=== PATIENT | female | born 1985 | race Caucasian/White ===

== ENCOUNTER → 2016-12-26 | Outpatient (CLI) | payer BC, OTHER | LOC: MOB LAB 15:38 | PROVIDERS: ATTEND Obstetrics & Gynecology | DX: Z36 Encounter for antenatal screening of mother (principal); Z3A.36 36 weeks gestation of pregnancy | CPT/HCPCS: 87150 ==

== ENCOUNTER 2017-01-14 06:09 | Inpatient (IN) | payer BC, OTHER ==
[2017-01-14] MEDS ORDERED: Metoclopramide Inj 10 MG/2 ML VIAL IV ONE (06:13)
[2017-01-14] MEDS ORDERED: CefOXitin Inj 2 GM in Sodium Chloride 0.9% 100 ML IV ONE (06:13)
[2017-01-14] MEDS ORDERED: LIDOCAINE W/ SODIUM BICARB 0.5 ML SYR SUBD PRN (06:13)
[2017-01-14] MEDS ORDERED: Lactated Ringers 1,000 ML PRIMARY IV ONE (06:13)
[2017-01-14] MEDS ORDERED: CITRIC ACID/SODIUM CITRATE 30 ML CUP PO ONE (06:13)
[2017-01-14] MEDS ORDERED: NORMAL SALINE 10 ML SYRINGE FLUSH IVP PRN (06:13)
[2017-01-14] MEDS ORDERED: Famotidine Inj 20 MG in Normal Saline Flush 10 ML IVP ONE (06:13)
[2017-01-14] MEDS ORDERED: Lactated Ringers 1,000 ML PRIMARY IV SCH (06:15)
[2017-01-14] MEDS ORDERED: Oxytocin 20 Units + LR 1,000 ML IV SCH ×2 (06:15→08:56)
[2017-01-14 07:01] LABS: HEMATOCRIT 35.2 % (37.0-47.0); HEMOGLOBIN 11.4 g/dL (12.0-16.0); MEAN CORPUSCULAR HEMOGLOBIN 29.6 PG (27-31); MEAN CORPUSCULAR HGB CONC 32.4 g/dL (33-37); MEAN CORPUSCULAR VOLUME 91.4 FL (81-99); RED BLOOD COUNT 3.85 10^6/uL (4.20-5.40)
[2017-01-14 07:17] LABS: BLOOD UREA NITROGEN 8 mg/dL (7-22); CALCIUM 9.2 mg/dL (8.7-10.7); EST GLOMERULAR FILTRATION > 60 (>60 ml/min/1.73m(2)); SERUM ALBUMIN 3.6 g/dL (3.5-4.8); URIC ACID 4.6 mg/dl (2.5-6.2)
[2017-01-14] MEDS ORDERED: MORPHINE SULFATE/PF 10 MG/10 ML AMPULE ONE (07:19)
[2017-01-14] MEDS ORDERED: OXYTOCIN 10 UNIT/1 ML ONE (08:32)
[2017-01-14] MEDS ORDERED: ePHEDrine Inj 50 MG/ML AMP ONE (08:32)
[2017-01-14] MEDS ORDERED: KETOROLAC 30 MG/1 ML VIAL ONE (08:39)
--- NOTE | 2017-01-14 08:47 | OB.OP.NOTE ---
Operative Report Surgeon: [place] Electron [employer] Photo Mask Technician: Martin Moore MD Anesthesia Type: Regional Anesthesia Provider: Ermias Butterfield CRNA Surgery Date: 01/14/17 Preoperative Diagnosis: 39 Week IUP, Previous Postoperative Diagnosis: Same Procedure: Repeat LTCS Estimated Blood Loss (mL): 600 Fluids: 1400 ml Complications: None Findings at Surgery: Viable male fetus, Apgars 8/10, 8 lbs. 3 oz., Normal uterus, tubes and ovaries. Indications for the Procedure: Previous delivery. Description of Procedure: See dictated operative report. Plan: Routine postop care.
[2017-01-14] MEDS ORDERED: diphenhydrAMINE 25 MG CAPSULE PO PRN (08:56)
[2017-01-14] MEDS ORDERED: diphenhydrAMINE 50 MG/1 ML VIAL IV PRN (08:56)
[2017-01-14] MEDS ORDERED: Naloxone Inj 0.01 MG, Sodium Chloride 0.9% vial 1 ML IVP PRN ×2 (08:56)
[2017-01-14] MEDS ORDERED: OXYTOCIN 10 UNIT/1 ML IM ONE (08:56)
[2017-01-14] MEDS ORDERED: CALCIUM CARBONATE 500 MG (TUMS) CHEWABLE TABLET PO PRN (08:56)
[2017-01-14] MEDS ORDERED: DIPH,PERTUSS,TET(ADACEL) VAC/PF 0.5 ML (Tdap) IM SCH (08:56)
[2017-01-14] MEDS ORDERED: Famotidine Inj 20 MG in Normal Saline Flush 10 ML IVP PRN (08:56)
[2017-01-14] MEDS ORDERED: METHYLERGONOVINE MALEATE 0.2 MG/1 ML VIAL IM PRN (08:56)
[2017-01-14] MEDS ORDERED: Methylergonovine Tab 0.2 MG TAB PO PRN (08:56)
[2017-01-14] MEDS ORDERED: ONDANSETRON 4 MG/2 ML VIAL IVP PRN (08:56)
[2017-01-14] MEDS ORDERED: MISOPROSTOL 200 MCG TABLET RECTAL ONE (08:56)
[2017-01-14] MEDS ORDERED: Nalbuphine Inj 20 MG/ML Ampule IVP PRN (08:56)
[2017-01-14] MEDS ORDERED: Carboprost Inj 250 MCG/ML AMP IM PRN (08:56)
[2017-01-14] MEDS ORDERED: LANOLIN HPA 40 GM TUBE TOPICAL PRN (08:56)
--- NOTE | 2017-01-14 08:59 | CRNA.PROCE ---
Central Neuraxis Block Placemt - - Safety Measures: Time Out Taken, Site Verified - - Type of Block: Subarachnoid Reason for Block: Surgical Moniters Used During Block: EKG, SPO2, NIBP Positioning: Sitting Skin Prep Used: ChloroPrep Draped: No Skin Infiltration - Enter Amount Used in Comment Field: 1% Xylocaine (mL): Yes ( skin wheal) Introducer User: 23 Gauge Spinal Needle Used: 25 Paco 80 mm Local Anesthetic - Enter Amount Used in Comment Field: 0.75 % Bupivacaine with Dextrose (ml): Yes (15mg(2ml) ) Additive Used - Enter Amount Used in Comment Field: Preservative Free Morphine ( mg): Yes (150mcg) Bioclusive Dressing Applied: No
[2017-01-14] MEDS: D5-LR 1,000 ML PRIMARY IV SCH ×2 (10:49→19:17)
[2017-01-14] MEDS: oxyCODONE-ACETAMINOPHEN 5-325 TAB PO PRN ×3 (11:06→21:30)
[2017-01-14] MEDS: KETOROLAC 30 MG/1 ML VIAL IVP PRN ×2 (14:57→21:30)
[2017-01-14] MEDS: NORMAL SALINE 10 ML SYRINGE FLUSH IVP PRN (21:31)
[2017-01-15] MEDS: oxyCODONE-ACETAMINOPHEN 5-325 TAB PO PRN ×6 (01:30→23:08)
[2017-01-15] MEDS: NORMAL SALINE 10 ML SYRINGE FLUSH IVP PRN ×2 (03:27→09:43)
[2017-01-15] MEDS: KETOROLAC 30 MG/1 ML VIAL IVP PRN ×2 (03:27→09:43)
[2017-01-15] MEDS: D5-LR 1,000 ML PRIMARY IV SCH (03:33)
[2017-01-15 05:21] LABS: HEMATOCRIT 33.5 % (37.0-47.0); HEMOGLOBIN 10.7 g/dL (12.0-16.0); MEAN CORPUSCULAR HEMOGLOBIN 29.6 PG (27-31); MEAN CORPUSCULAR HGB CONC 31.9 g/dL (33-37); MEAN CORPUSCULAR VOLUME 92.8 FL (81-99); MEAN PLATELET VOLUME 10.2 FL (7.4-12.2); RED BLOOD COUNT 3.61 10^6/uL (4.20-5.40)
--- NOTE | 2017-01-15 08:51 | OB.PROGRES ---
Subjective Post Op Day: 1 Pain Management: PO [place] Catheter: No Flatus: Yes Diet: Regular Feeding Method: Exculsively Ambulating: Yes Concerns / Additional Information: Doing well this AM. Good pain control. Tolerating regular diet. Ambulating. Assesstment / Plan Assessment / Plan: POD #1, doing well. CCM.
[2017-01-15] MEDS: Prenatal Multivitamin Tab 1 TAB TAB PO SCH (08:59)
[2017-01-15] MEDS: Senna/Docusate Tab 1 TAB TAB PO SCH ×2 (08:59→23:08)
[2017-01-15] MEDS: IBUPROFEN 800 MG TABLET PO PRN (17:04)
[2017-01-16] MEDS: IBUPROFEN 800 MG TABLET PO PRN (01:26)
[2017-01-16] MEDS: oxyCODONE-ACETAMINOPHEN 5-325 TAB PO PRN ×3 (03:12→12:44)
[2017-01-16] MEDS: Prenatal Multivitamin Tab 1 TAB TAB PO SCH (08:02)
[2017-01-16] MEDS: Senna/Docusate Tab 1 TAB TAB PO SCH (08:03)
[2017-01-16 08:38] VITALS: RESP 18; TEMP 97.6
--- NOTE | 2017-01-16 08:54 | DCSUMMARY ---
Hospitalization Summary Admit Date: 01/14/17 Discharge Date: 01/16/17 Primary Diagnosis:: Previous at 39 weeks. Primary Surgery and Date: Repeat LTCS 01/14/17 Delivery Type: Hospital Course: Uncomplicated repeat section. Postop course was unremarkable. Discharge to home on POD 2 in good condition. / Postop Complications: None Complications: None Exam - Vitals Vital Signs: Vital Signs Temperature 97.6 F Temperature Source Tympanic Pulse Rate [Apical] 90 Pulse Rate [Pulse Oximeter] 77 Pulse Rate 80 Respiratory Rate 18 Blood Pressure [Right Arm] 126/80 Blood Pressure 108/69 Pulse Ox 94 Oxygen Flow Rate 1 Oxygen Delivery Method Room Air Height 5 ft 1 in Weight 175 lb 3.2 oz
--- NOTE | 2017-01-16 09:05 | CRNA.PROGR ---
Anesthesia Note Anesthesia Progress Note: Post OP Anesthesia Note Pt is sitting up in bed, dressed and showered. She has been up ambulating, tolerating a regular diet, pain is well under control. Denies any residual problems of the SAB. Current VS are stable. Vital Signs (Last 8 hours) Temp Pulse Resp BP Pulse Ox 01/16/17 08:10 97.6 F 77 18 126/80 94 01/16/17 05:00 97.5 F 83 16 112/73 95
== END 2017-01-16 13:00 | disposition home or self-care (01) | DRG 766 ==
LOC: OBOR 06:09 → MED/SURG 09:15 → OBIP 11:07 → UNDODISIN 01-16 13:00
PROVIDERS: ADMIT Obstetrics & Gynecology; ATTEND Obstetrics & Gynecology
PROC: 10D00Z1 Extraction of Products of Conception, Low, Open Approach (ICD-10-PCS; principal; 2017-01-14 08:00)
DX: O34.211 Maternal care for low transverse scar from previous cesarean delivery (principal); N85.8 Other specified noninflammatory disorders of uterus; Z3A.39 39 weeks gestation of pregnancy; Z37.0 Single live birth
CPT/HCPCS: 36415; 80053; 81003; 83615; 84550; 85025; 85027; 86850; 86900; 86901; 94150; 94761; J1885; J2405; J2590; J2765; J7050; J7120